=== PATIENT | female | born 1985 | race Caucasian/White ===

== ENCOUNTER 2016-12-13 15:15 | Emergency (ER) | payer OTHER, SELFPAY ==
[2016-12-13] MEDS ORDERED: Ketorolac Tromethamine 60 MG/2 ML VIAL ONE (15:54)
[2016-12-13] MEDS ORDERED: Adacel (T-DAP) 0.5 ML VIAL ONE (15:54)
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
== END 2016-12-13 17:05 | disposition home or self-care (01) ==
LOC: ERS 15:15
DX: S23.8XXA Sprain of other specified parts of thorax, initial encounter (principal); F17.210 Nicotine dependence, cigarettes, uncomplicated; V89.2XXA Person injured in unspecified motor-vehicle accident, traffic, initial encounter
CPT/HCPCS: 71020; 90471; 90715; 96372; J1885

== ENCOUNTER 2016-12-18 11:01 | Emergency (ER) | payer OTHER, SELFPAY ==
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
[2016-12-18] MEDS ORDERED: Morphine 10 MG/ML VIAL ONE ×2 (13:42→15:13)
[2016-12-18] MEDS ORDERED: Ondansetron HCl/PF 4 MG/2 ML Vial ONE (13:42)
[2016-12-18 14:02] LABS: #Basophils 0.1 thou/uL (0.0-0.2); #Eosinphils 0.4 thou/uL (0.0-0.7); #Lymphocytes 4.1 thou/uL (1.20-3.40); #Neutrophils 11.7 thou/uL (1.40-6.50); %Basophils 0.6 % (0.0-1.0); %Eosinophils 2.2 % (0.0-10.0); %Lymphocytes 23.5 % (21.0-51.0); %Monocytes 5.9 % (0.0-10.0); Hematocrit 52.4 % (36.0-47.0); Mean Platelet Volume 7.8 fL (7.4-10.4); Red Blood Cell (RBC) Count 5.75 mill/uL (4.20-5.40); White Blood Cell (WBC) Count 17.3 thou/uL (4.8-10.8)
[2016-12-18 14:25] LABS: ALT (SGPT) 32 U/L (8-55); AST (SGOT) 27 U/L (5-34); Alkaline Phosphatase 51 U/L (40-150); Anion Gap 16 mmol/L (10-20); BUN (Urea Nitrogen) 10 mg/dL (7.0-18.7); Bilirubin, Total 0.4 mg/dL (0.2-1.2); Calc. Creatinine Clearance 0 mL/min (70-130); Calcium 9.4 mg/dL (7.8-10.44); Carbon Dioxide 19 mmol/L (22-29); Chloride 108 mmol/L (98-107); Estimated GFR-MDRD Greater than 90; Globulin 3.9 g/dL (2.4-3.5); Protein, Total 7.7 g/dL (6.0-8.3)
[2016-12-18] MEDS ORDERED: cefTRIAXone\\ROCEPHIN 1 GM, Syringe 0.4 ML in Sterile Water 9.6 ML SLOW IVP SCH (15:00)
[2016-12-18] MEDS ORDERED: Ketorolac Tromethamine 30 MG/ML VIAL ONE (15:28)
[2016-12-18] MEDS ORDERED: Dexamethasone 10 MG/ML VIAL ONE (15:28)
[2016-12-18 15:36] LABS: Bilirubin Negative (Negative); Blood, Urine Small (Negative); Glucose, Urine (Dipstick) Negative (Negative); Ketone, Urine Negative (Negative); Nitrite Negative (Negative); Protein, Urine (Dipstick) Negative (Neg-Trace)
[2016-12-18 15:37] LABS: Bacteria/HPF 1+ HPF (None Seen); Hyaline Casts/LPF 4-6 HYALINE CAST LPF (0-3 Hyaline)
--- NOTE | 2016-12-18 16:31 | CT ---
CT ABDOMEN AND PELVIS WITHOUT CONTRAST: HISTORY: Left back pain, followed by a cough, and heard a popping noise. COMPARISON: None. FINDINGS: No focal air space consolidation in the lung bases. There are multiple small areas of peripheral ai r trapping. Diffuse hepatic steatosis. No pericholecystic inflammation. The appendix is visualized and is norm al. There is a punctate calculus at the inferior pole, right renal collecting system, as well as smaller punctate calculi at the interpolar right renal collecting system. No hydroureteronephrosis. No dilated loops of large or small bowel. No adenopathy. The aortoiliac contour appears normal. There is a nondisplaced left posterior 8th rib fracture. Other fractures may be present, although a re not visualized. IMPRESSION: 1. Punctate right-sided renal calculi without evidence of obstruction. 2. Nondisplaced posterior left 8th rib fracture with small extrapleural hematoma. There is some ai r trapping in the lung bases. More craniad fractures may be present, although are not interrogated on this abdomen and pelvis CT. 3. Normal appendix. POS: [facility]
== END 2016-12-18 17:22 | disposition home or self-care (01) ==
LOC: ERS 11:01
DX: S22.32XA Fracture of one rib, left side, initial encounter for closed fracture (principal); J40 Bronchitis, not specified as acute or chronic; I10 Essential (primary) hypertension; D72.829 Elevated white blood cell count, unspecified; F17.210 Nicotine dependence, cigarettes, uncomplicated; V49.9XXA Car occupant (driver) (passenger) injured in unspecified traffic accident, initial encounter
CPT/HCPCS: 71020; 74176; 80053; 81003; 81015; 84703; 85025; 87086; 96361; 96374; 96375; 96376; 99406; A4216; J0696; J1100; J1885; J2270; J2405

== ENCOUNTER 2017-02-05 19:39 | Emergency (ER) | payer SELFPAY ==
[2017-02-05] MEDS ORDERED: Lidocaine 1% w/Epinephrine 1:100K 20 ML VIAL ONE (20:23)
[2017-02-05] MEDS ORDERED: Morphine 4 MG/ML VIAL ONE (20:29)
== END 2017-02-05 21:19 | disposition home or self-care (01) ==
LOC: ERS 19:39
DX: L05.01 Pilonidal cyst with abscess (principal); F17.210 Nicotine dependence, cigarettes, uncomplicated
CPT/HCPCS: 10080; 87070; 87205; 96372; J2001; J2270

== ENCOUNTER 2017-06-04 16:53 | Emergency (ER) | payer SELFPAY ==
[2017-06-04] MEDS ORDERED: HYDROcodone/Acetaminophen 10/325 mg Tablet ONE (18:48)
== END 2017-06-04 18:44 | disposition home or self-care (01) ==
LOC: ERS 16:53
DX: L05.01 Pilonidal cyst with abscess (principal); F17.210 Nicotine dependence, cigarettes, uncomplicated
CPT/HCPCS: 10080; 87070; 87205; 99406

== ENCOUNTER 2017-08-07 16:05 | Emergency (ER) | payer SELFPAY ==
[2017-08-07] MEDS ORDERED: Lidocaine 1% w/Epinephrine 1:100K 20 ML VIAL ONE (16:22)
[2017-08-07] MEDS ORDERED: Lidocaine 1% PF 5 ML VIAL ONE (16:22)
== END 2017-08-07 17:36 | disposition home or self-care (01) ==
LOC: ERS 16:05
DX: L05.01 Pilonidal cyst with abscess (principal); F17.210 Nicotine dependence, cigarettes, uncomplicated
CPT/HCPCS: 10080; J2001

== ENCOUNTER 2017-09-23 17:21 | Emergency (ER) | payer SELFPAY ==
[2017-09-23] MEDS ORDERED: Lidocaine 1% PF 5 ML VIAL ONE (17:55)
[2017-09-23] MEDS ORDERED: HYDROcodone/Acetaminophen 10/325 mg Tablet ONE (17:56)
== END 2017-09-23 18:30 | disposition home or self-care (01) ==
LOC: ERS 17:21
DX: L05.01 Pilonidal cyst with abscess (principal); F17.210 Nicotine dependence, cigarettes, uncomplicated
CPT/HCPCS: 10080; J2001

== ENCOUNTER 2018-03-03 13:48 | Emergency (ER) | payer SELFPAY ==
[2018-03-03] MEDS ORDERED: Lidocaine 1% w/Epinephrine 1:100K 20 ML VIAL ONE (14:37)
== END 2018-03-03 15:08 | disposition home or self-care (01) ==
LOC: ERS 13:48
DX: L05.01 Pilonidal cyst with abscess (principal)
CPT/HCPCS: 10080; J2001

== ENCOUNTER 2018-03-15 16:13 | Emergency (ER) | payer SELFPAY | END 2018-03-15 17:12 | disposition home or self-care (01) | LOC: ERS 16:13 | DX: L05.01 Pilonidal cyst with abscess (principal); L03.317 Cellulitis of buttock; F17.200 Nicotine dependence, unspecified, uncomplicated | CPT/HCPCS: 10080; 87070; 87205 ==

== ENCOUNTER 2018-04-26 08:12 | Outpatient (CLI) | payer OTHER, SELFPAY ==
[2018-04-26 15:53] LABS: #Basophils 0.1 thou/uL (0.0-0.2); #Eosinphils 0.3 thou/uL (0.0-0.7); #Lymphocytes 3.6 thou/uL (1.20-3.40); #Monocytes 0.8 thou/uL (0.11-0.59); #Neutrophils 10.5 thou/uL (1.40-6.50); %Basophils 0.6 % (0.0-1.0); %Eosinophils 2.1 % (0.0-10.0); %Lymphocytes 23.4 % (21.0-51.0); %Monocytes 5.3 % (0.0-10.0); %Neutrophils 68.6 % (42.0-75.0); Hemoglobin 17.5 g/dL (12.0-16.0); Mean Corpuscular HGB CONC 34.2 g/dL (32.0-36.0); Mean Corpuscular Hemoglobin 31.3 pg (27.0-31.0); Mean Corpuscular Volume 91.5 fL (78.0-98.0); Mean Platelet Volume 7.9 fL (7.4-10.4); Platelet Count 244 thou/uL (130-400); RBC Distribution Width 12.5 % (11.5-14.5); White Blood Cell (WBC) Count 15.3 thou/uL (4.8-10.8)
[2018-04-26 16:07] LABS: Anion Gap 17 mmol/L (10-20); BUN (Urea Nitrogen) 14 mg/dL (7.0-18.7); Calc. Creatinine Clearance 0 mL/min (70-130); Calcium 9.7 mg/dL (7.8-10.44); Carbon Dioxide 22 mmol/L (22-29); Chloride 106 mmol/L (98-107); Estimated GFR-MDRD 89; Glucose 85 mg/dL (70-105); Potassium 4.4 mmol/L (3.5-5.1); Sodium 141 mmol/L (136-145)
== END 2018-04-26 08:13 | disposition home or self-care (01) ==
LOC: LABBT 08:12
PROVIDERS: ATTEND Surgery
DX: Z01.812 Encounter for preprocedural laboratory examination (principal); L05.91 Pilonidal cyst without abscess
CPT/HCPCS: 80048; 85025

== ENCOUNTER 2018-08-22 12:49 | Emergency (ER) | payer SELFPAY ==
[2018-08-22] MEDS ORDERED: Lidocaine 1% w/Epinephrine 1:100K 20 ML VIAL ONE (13:40)
== END 2018-08-22 14:38 | disposition home or self-care (01) ==
LOC: ERS 12:49
DX: L05.01 Pilonidal cyst with abscess (principal); I10 Essential (primary) hypertension; F17.200 Nicotine dependence, unspecified, uncomplicated
CPT/HCPCS: 10080; J2001

== ENCOUNTER 2018-09-02 14:17 | Emergency (ER) | payer SELFPAY ==
[2018-09-02] MEDS ORDERED: Lidocaine 1% w/Epinephrine 1:100K 20 ML VIAL ONE (15:10)
== END 2018-09-02 16:05 | disposition home or self-care (01) ==
LOC: ERS 14:17
DX: L05.01 Pilonidal cyst with abscess (principal); F32.9 Major depressive disorder, single episode, unspecified; F17.210 Nicotine dependence, cigarettes, uncomplicated
CPT/HCPCS: 10080; J2001

== ENCOUNTER 2018-09-13 13:01 | Emergency (ER) | payer BC, SELFPAY ==
[2018-09-13] MEDS ORDERED: Lidocaine 1% PF 5 ML VIAL ONE (13:27)
[2018-09-13] MEDS ORDERED: Lidocaine 1% w/Epinephrine 1:100K 20 ML VIAL ONE (13:28)
== END 2018-09-13 14:26 | disposition home or self-care (01) ==
LOC: ERS 13:01
DX: L05.01 Pilonidal cyst with abscess (principal); F32.9 Major depressive disorder, single episode, unspecified; F41.9 Anxiety disorder, unspecified; F17.210 Nicotine dependence, cigarettes, uncomplicated; Z79.899 Other long term (current) drug therapy
CPT/HCPCS: 10080; J2001

== ENCOUNTER 2018-10-02 14:52 | Emergency (ER) | payer BC ==
[2018-10-02] MEDS ORDERED: Lidocaine 1% w/Epinephrine 1:100K 20 ML VIAL ONE (16:17)
== END 2018-10-02 16:55 | disposition home or self-care (01) ==
LOC: ERS 14:52
DX: L05.01 Pilonidal cyst with abscess (principal); F17.210 Nicotine dependence, cigarettes, uncomplicated
CPT/HCPCS: 10080; J2001

== ENCOUNTER 2018-12-18 11:52 | Emergency (ER) | payer BC ==
[2018-12-18] MEDS ORDERED: Lidocaine 1% w/Epinephrine 1:100K 20 ML VIAL ONE (12:12)
[2018-12-18] MEDS ORDERED: Sodium Bicarb 50 MEQ/50 ML VIAL ONE (12:38)
[2018-12-18] MEDS ORDERED: Sodium Bicarbonate 2.5 MEQ/5 ML VIAL ONE (12:39)
== END 2018-12-18 13:24 | disposition home or self-care (01) ==
LOC: ERS 11:52
DX: L05.01 Pilonidal cyst with abscess (principal); F17.210 Nicotine dependence, cigarettes, uncomplicated
CPT/HCPCS: 10060; 10080

== ENCOUNTER 2019-01-15 13:40 | Emergency (ER) | payer BC ==
[2019-01-15] MEDS ORDERED: Lidocaine 1% PF 5 ML VIAL ONE (14:22)
== END 2019-01-15 15:05 | disposition home or self-care (01) ==
LOC: ERS 13:40
DX: L05.01 Pilonidal cyst with abscess (principal); F17.210 Nicotine dependence, cigarettes, uncomplicated
CPT/HCPCS: 10080; 87070; 87205; J2001

== ENCOUNTER 2019-05-05 11:12 | Emergency (ER) | payer BC ==
[2019-05-05] MEDS ORDERED: Lidocaine 1% (PF) 30 ML VIAL ONE (11:28)
[2019-05-05] MEDS ORDERED: HYDROcodone/Acetaminophen 10/325 mg Tablet ONE (11:47)
== END 2019-05-05 12:27 | disposition home or self-care (01) ==
LOC: ERS 11:12
DX: L05.01 Pilonidal cyst with abscess (principal); I10 Essential (primary) hypertension; F41.9 Anxiety disorder, unspecified; F17.210 Nicotine dependence, cigarettes, uncomplicated
CPT/HCPCS: 10080; J2001

== ENCOUNTER 2019-05-07 13:12 | Emergency (ER) | payer BC ==
[2019-05-07] MEDS ORDERED: Lidocaine 1% (PF) 30 ML VIAL ONE (14:04)
[2019-05-07] MEDS ORDERED: traMADol HCl 50 MG TAB ONE (14:36)
== END 2019-05-07 14:49 | disposition home or self-care (01) ==
LOC: ERS 13:12
DX: L05.01 Pilonidal cyst with abscess (principal); I10 Essential (primary) hypertension; F41.9 Anxiety disorder, unspecified; F17.210 Nicotine dependence, cigarettes, uncomplicated; Z79.899 Other long term (current) drug therapy
CPT/HCPCS: 96372; 99283; J2001

== ENCOUNTER 2019-05-22 21:05 | Emergency (ER) | payer BC ==
[2019-05-22] MEDS ORDERED: Lidocaine 1% w/Epinephrine 1:100K 20 ML VIAL ONE (21:34)
[2019-05-22] MEDS ORDERED: Ketorolac Tromethamine 30 MG/ML VIAL ONE (21:34)
== END 2019-05-22 22:09 | disposition home or self-care (01) ==
LOC: ERS 21:05
DX: L05.01 Pilonidal cyst with abscess (principal); I10 Essential (primary) hypertension; F17.210 Nicotine dependence, cigarettes, uncomplicated; Z79.899 Other long term (current) drug therapy; F41.9 Anxiety disorder, unspecified
CPT/HCPCS: 10080; 96372; J1885

== ENCOUNTER 2019-07-17 15:18 | Emergency (ER) | payer BC ==
[2019-07-17] MEDS ORDERED: Sulfameth/Trimethoprim DS 800-160mg TAB ONE (16:04)
[2019-07-17] MEDS ORDERED: Cephalexin 250 MG CAP ONE (16:04)
[2019-07-17] MEDS ORDERED: Ibuprofen 200 MG TAB ONE (16:04)
[2019-07-17] MEDS ORDERED: traMADol HCl 50 MG TAB ONE (16:05)
== END 2019-07-17 16:40 | disposition home or self-care (01) ==
LOC: ERS 15:18
DX: L05.01 Pilonidal cyst with abscess (principal); I10 Essential (primary) hypertension; F41.9 Anxiety disorder, unspecified; F17.210 Nicotine dependence, cigarettes, uncomplicated; Z79.899 Other long term (current) drug therapy
CPT/HCPCS: 10060

== ENCOUNTER 2019-08-26 13:04 | Outpatient (CLI) | payer BC ==
--- NOTE | 2019-08-26 14:02 | ULT ---
Exam: Pelvic ultrasound HISTORY: Polycystic ovary syndrome. COMPARISON: None TECHNIQUE: Multiple grayscale and color Doppler images were obtained in a transabdominal and transvag inal pelvic ultrasound. Spectral analysis of the Doppler waveforms of the ovaries were performed. FINDINGS: CERVIX: Unremarkable UTERUS: Normal in size without focal abnormality. ENDOMETRIAL STRIPE: 9 mm which is within normal limits for a normal menstruating female patient. No f luid or fluid collection is seen in the endometrial canal. No free fluid is present. RIGHT OVARY: Normal flow, without focal mass. LEFT OVARY:There is a circumscribed 2 cm anechoic structure seen involving the left ovary most sugges tive of a left ovarian cyst. Flow is demonstrated in the left ovary. IMPRESSION: 1. Normal appearing uterus. 2. Endometrial stripe thickness measures 9 mm which is within normal limits for a normal menstruating female patient. 3. Left ovarian cyst.
== END 2019-08-26 13:05 | disposition home or self-care (01) ==
LOC: SCSULT 13:04
PROVIDERS: ATTEND Family Medicine
DX: E28.2 Polycystic ovarian syndrome (principal); N83.202 Unspecified ovarian cyst, left side; R93.89 Abnormal findings on diagnostic imaging of other specified body structures
CPT/HCPCS: 76856